=== PATIENT | male | born 1950 | race American Indian/Alaskan Native ===

== ENCOUNTER 2019-03-14 14:34 | Outpatient (CLI) | payer OTHER | END 2019-03-14 14:35 | disposition critical access hospital (66) | LOC: EMS 14:34 | PROVIDERS: ATTEND Surgery | DX: S01.81XA Laceration without foreign body of other part of head, initial encounter (principal); M25.511 Pain in right shoulder; R53.83 Other fatigue; W01.0XXA Fall on same level from slipping, tripping and stumbling without subsequent striking against object, initial encounter; Y93.01 Activity, walking, marching and hiking; Y92.009 Unspecified place in unspecified non-institutional (private) residence as the place of occurrence of the external cause | CPT/HCPCS: A0425; A0429 ==

== ENCOUNTER 2019-03-14 14:47 | Emergency (ER) | payer OTHER ==
[2019-03-14] MEDS ORDERED: HYDROcod/ACETAM 5/325 MG TABLET PO STA (14:54)
[2019-03-14] MEDS ORDERED: TETANUS/DIPHTHERIA/PERTUSSIS 0.5 ML SYRINGE IM ONE (14:54)
[2019-03-14] MEDS ORDERED: LIDOCAINE-EPINEPH-TETRACAINE 3 ML SYRINGE TOP STA (14:58)
--- NOTE | 2019-03-14 14:58 | ED Physician Documentation ---
PD HPI HEAD INJURY - Stated complaint Stated Complaint: GLF - History obtained from History obtained from: Patient, EMS - History of Present Illness Mechanism of head injury: Fell (He tripped and fell forward hitting his forehead on the ground. He has a wound there. He is amnestic to what happened after but is oriented now. He also complains of right shoulder pain. Both of his knees hurt to, but he says that is not from the injury, he is having a pseudogout attack. He vacillates as to whether or not he is up-to-date on tetanus. He is visiting from [place]. Denies drug or alcohol use today.) Review of Systems Ten Systems: 10 systems reviewed and negative Constitutional: denies: Fever, Chills Nose: denies: Rhinorrhea / runny nose, Congestion Cardiac: denies: Chest pain / pressure, Palpitations Respiratory: denies: Dyspnea, Cough PD PAST MEDICAL HISTORY - Past Medical History Past Medical History: Yes Musculoskeletal: Other (pseudogout) - Present Medications Home Medications: Ambulatory Orders Medication Instructions Recorded Confirmed Hydrocodone/Acetaminophen 1 - 2 each PO Q6H PRN #10 tablet 03/14/19 [Hydrocodon-Acetaminophen 5-325] - Allergies Allergies/Adverse Reactions: Allergies Allergy/AdvReac Type Severity Reaction Status Date / Time No Known Drug Allergies Allergy Verified 03/14/19 15:11 - Social History Does the pt smoke?: No Does the pt drink ETOH?: No - Family History Family history: reports: Non contributory PD ED PE NORMAL - Vitals Vital signs reviewed: Yes - General General: Alert and oriented X 3, Other (Slightly slow to answer questions but alert and oriented) - HEENT HEENT: PERRL, EOMI, Other (There is a 2 cm V-shaped shallow skin tear to the left forehead) - Neck Neck: Supple, no meningeal sign, No bony TTP - Cardiac Cardiac: RRR, No murmur - Respiratory Respiratory: No respiratory distress, Clear bilaterally - Abdomen Abdomen: Normal bowel sounds, Soft, Non tender - Back Back: No CVA TTP, No spinal TTP - Extremities Extremities: Other (Tender to the lateral right shoulder with diminished but not absent range of motion, the rest of his extremities are palpated and nontender.) - Neuro Neuro: Alert and oriented X 3, Normal speech Eye Opening: To Voice Motor: Obeys Commands Verbal: Oriented GCS Score: 14 - Psych Psych: Normal mood, Normal affect Results - Vitals Vitals: Vital Signs - 24 hr 03/14/19 14:47 Temperature 36.6 C Heart Rate 78 Respiratory 18 Rate Blood Pressure 139/77 H O2 Saturation 99 Oxygen O2 Source Room air - Rads (name of study) XR R shoulder Radiology: EMP read contemporaneously (NAD) CT Head Radiology: EMP read contemporaneously (NAD) CT C Spine Radiology: EMP read contemporaneously (multilevel DDD, no frx) Procedures - Laceration (location) L forehead Length in cm: 2 Wound type: Irregular, Flap, Contaminated (a lot of grit, debrided sharply), Other (Required extensive debridement, there was also some tissue loss, really more of a rough gouge than a laceration.) Anesthesia: LET, Lidocaine 1% with epi Wound Preparation: Irrigated copiously NS, Debrided extensively Skin layer closure: Prolene, Interrupted, Size #-0 - enter number (6-0), Sutures - enter # (6) Other: Patient tolerated well, No complications, Neurovascular intact, Tetanus booster given Complexity: Intermediate Departure - Departure Disposition: 01 Home, Self Care Clinical Impression: Concussion Qualifiers: Encounter type: initial encounter Loss of consciousness presence/duration: with LOC of 30 min or less Qualified Code(s): S06.0X1A - Concussion with loss of consciousness of 30 minutes or less, initial encounter Injury of head and neck Qualifiers: Encounter type: initial encounter Qualified Code(s): S09.90XA - Unspecified injury of head, initial encounter Contusion of right shoulder Qualifiers: Encounter type: initial encounter Qualified Code(s): S40.011A - Contusion of right shoulder, initial encounter Facial laceration Qualifiers: Encounter type: initial encounter Qualified Code(s): S01.81XA - Laceration without foreign body of other part of head, initial encounter Condition: Good Record reviewed to determine appropriate education?: Yes Instructions: ED Head Injury Closed, ED Laceration Facial Sutr Tape Prescriptions: Hydrocodone/Acetaminophen [Hydrocodon-Acetaminophen 5-325] 1 - 2 each PO Q6H PRN #10 tablet PRN Reason: pain Comments: Call your doctor to arrange a follow-up appointment, make the next available appointment. In the interim, return anytime if worse or if new symptoms develop. Come back for any signs of infection which would include: Redness, swelling, drainage, increased pain, or fevers. You can wash it soap and water. Keep it covered and moist with bacitracin ointment which is available over the counter; avoid neosporin. Follow-up with your physician in 7 days for suture removal.
--- NOTE | 2019-03-14 16:01 | CT Report ---
Reason: head / shoulder inj Procedure Date: 03/14/2019 Accession Number: [id number] / [id number] Procedure: CT - HEAD WO CPT Code: FULL RESULT: EXAM: CT HEAD EXAM DATE: 03/14/2019 03:30 PM. CLINICAL HISTORY: 68-year-old male with fall Head / shoulder inj. COMPARISON: None. TECHNIQUE: Multiaxial CT images were obtained from the foramen magnum to the vertex. Reformats: Sagittal and coronal. IV contrast: None. In accordance with CT protocol optimization, one or more of the following dose reduction techniques were utilized for this exam: automated exposure control, adjustment of mA and/or KV based on patient size, or use of iterative reconstructive technique. FINDINGS: Parenchyma: No intraparenchymal hemorrhage. No evidence of mass, midline shift, or CT findings of infarction. Hansen-white differentiation is distinct. Scattered periventricular white matter hypodensities, nonspecific, favored to represent sequela of chronic microangiopathy. Extraaxial Spaces: Normal for age. No subdural or epidural collections identified. Ventricles: Normal in size and position. Sinuses and Orbits: Imaged paranasal sinuses, orbits, and mastoids show no significant abnormality. Bones: No evidence of fracture or calvarial defect. Other: None. IMPRESSION: No CT evidence of acute intracranial abnormality, specifically no CT evidence of acute infarct, intracranial hemorrhage, mass effect, midline shift, or hydrocephalus. RAD[facility]
--- NOTE | 2019-03-14 16:02 | XRAY Report ---
Reason: head / shoulder inj Procedure Date: 03/14/2019 Accession Number: [id number] / [id number] Procedure: XR - Shoulder 3 View RT CPT Code: FULL RESULT: EXAM: RIGHT SHOULDER RADIOGRAPHY EXAM DATE: 03/14/2019 03:32 PM. CLINICAL HISTORY: Head/shoulder injury. Pain. COMPARISON: None. TECHNIQUE: 3 views. FINDINGS: Bones: Normal. No fracture or bone lesion. Joints: Mild degenerative hypertrophy of the lateral clavicle. Otherwise the glenohumeral and acromioclavicular joints are normal. Soft tissues: The visualized hemithorax is unremarkable. Soft tissue calcification at the tip of the coracoid process suggests enthesopathy or prior injury. IMPRESSION: No acute bony abnormality or dislocation. RADIA
--- NOTE | 2019-03-14 16:10 | CT Report ---
Reason: head / shoulder inj Procedure Date: 03/14/2019 Accession Number: [id number] / [id number] Procedure: CT - CERVICAL SPINE WO CPT Code: FULL RESULT: EXAM: CT CERVICAL SPINE WITHOUT CONTRAST DATE: 03/14/2019 03:30 PM. HISTORY: 68-year-old male. Head / shoulder inj. COMPARISONS: None. TECHNIQUE: Thin-section axial images were acquired of the cervical spine without contrast. Post-processing: Coronal and sagittal reformats. Other: None. In accordance with CT protocol optimization, one or more of the following dose reduction techniques were utilized for this exam: automated exposure control, adjustment of mA and/or KV based on patient size, or use of iterative reconstructive technique. FINDINGS: Alignment: No scoliosis or spondylolisthesis. Bones: No fracture or bone lesion. Interspace Levels/Facets: C1-C2: Unremarkable. C2-C3: Moderate left facet arthropathy. Small posterior disk bulge. No significant central canal or foraminal narrowing. C3-C4: Moderate to severe left facet arthropathy. Mild left foraminal narrowing. No right foraminal narrowing. No central canal narrowing. C4-C5: Moderate to severe disk height loss. Small posterior disk osteophyte complex. Moderate bilateral uncovertebral spurring. Mild bilateral facet arthropathy. No significant central canal narrowing. Moderate bilateral foraminal narrowing C5-C6: Moderate disk height loss. Moderate diffuse disk bulge. Moderate to severe right facet arthropathy. Moderate to severe right uncovertebral spurring. Mild central canal narrowing. Moderate to severe right foraminal narrowing. No left foraminal narrowing. C6-C7: Moderate disk height loss. Small posterior disk osteophyte complex. Severe bilateral uncovertebral spurring. Mild bilateral facet arthropathy. Mild central canal narrowing. Moderate to severe bilateral foraminal narrowing. C7-T1: Unremarkable. Musculature: Normal. No fatty atrophy. Other: Overall very poor dentition noted. Moderate atherosclerosis intracranial arteries. The paravertebral and prevertebral soft tissues are otherwise unremarkable. The lung apices are clear. IMPRESSION: 1. No evidence of acute fracture or malalignment. No prevertebral soft tissue swelling. 2. Moderate multilevel degenerative spondylosis, as detailed above. RADIA
[2019-03-14] MEDS ORDERED: BACITRACIN OINT TOP ONE (16:16)
[2019-03-14 16:22] VITALS: BP 131/90
== END 2019-03-14 16:22 | disposition home or self-care (01) ==
LOC: ED 14:47
DX: S06.0X1A Concussion with loss of consciousness of 30 minutes or less, initial encounter (principal); S01.82XA Laceration with foreign body of other part of head, initial encounter; S40.011A Contusion of right shoulder, initial encounter; W01.0XXA Fall on same level from slipping, tripping and stumbling without subsequent striking against object, initial encounter; M47.812 Spondylosis without myelopathy or radiculopathy, cervical region; Z23 Encounter for immunization
CPT/HCPCS: 12051; 70450; 72125; 73030; 90471; 90715; 99283; A9270

== ENCOUNTER 2020-01-11 09:58 | Emergency (ER) | payer OTHER ==
--- NOTE | 2020-01-11 10:14 | ED Physician Documentation ---
PD HPI URI - Stated complaint Stated Complaint: FLU SYMPTOMS - Chief complaint Chief Complaint: Fever - History obtained from History obtained from: Patient - History of Present Illness Timing - onset: How many days ago (several) Timing duration: Days Timing details: Gradual onset, Still present Associated symptoms: Productive cough, Dyspnea, NVD (some diarrhea). No: Fever, Sore throat, Chest pain Contributing factors: Travel (Had traveled in from [place] to here few weeks ago and was actually staying here and living in his car. He does plan to return to [place] in a couple of weeks where his family lives.), COPD / asthma. No: Sick contact, Immunocompromised Improves by: Rest Worsened by: Activity Similar symptoms before: Diagnosis (bronchitis and asthma in the past.) Recently seen: Not recently seen Review of Systems Constitutional: reports: Myalgias, Fatigue. denies: Fever, Chills Nose: reports: Congestion. denies: Rhinorrhea / runny nose Throat: denies: Sore throat Cardiac: denies: Chest pain / pressure, Palpitations, Pedal edema, Calf pain Respiratory: reports: Cough, Wheezing GI: reports: Nausea. denies: Abdominal Pain, Vomiting, Diarrhea Skin: denies: Rash Neurologic: denies: Confused, Headache PD PAST MEDICAL HISTORY - Past Medical History Cardiovascular: Hypertension Respiratory: Pneumonia Musculoskeletal: Other (pseudogout) - Past Surgical History Past Surgical History: No - Present Medications Home Medications: Ambulatory Orders Medication Instructions Recorded Confirmed Hydrocodone/Acetaminophen 1 - 2 each PO Q6H PRN #10 tablet 03/14/19 [Hydrocodon-Acetaminophen 5-325] Albuterol Sulfate [Albuterol 2 puffs IH QID #1 hfa.aer.ad 01/11/20 Sulfate Hfa] Benzonatate [Tessalon Perle] 100 - 200 mg PO TID PRN #30 capsule 01/11/20 Doxycycline Monohydrate 100 mg PO BID #14 tablet 01/11/20 dexAMETHasone [Decadron] 4 mg PO DAILY #7 tablet 01/11/20 guaiFENesin/CODEINE [Robitussin AC] 10 ml PO Q6H PRN #240 ml 01/11/20 - Allergies Allergies/Adverse Reactions: Allergies Allergy/AdvReac Type Severity Reaction Status Date / Time No Known Drug Allergies Allergy Verified 01/11/20 10:10 - Social History Does the pt smoke?: No Smoking Status: Never smoker Does the pt drink ETOH?: No Does the pt have substance abuse?: No - Immunizations Immunizations: TDAP >10years/unknown PD ED PE NORMAL - Vitals Vital signs reviewed: Yes - General General: Alert and oriented X 3, No acute distress, Well developed/nourished - HEENT HEENT: Ears normal, Pharynx benign - Neck Neck: Supple, no meningeal sign, No adenopathy - Cardiac Cardiac: RRR, No murmur - Respiratory Respiratory: No: Clear bilaterally (Wheezing diffusely without any accessory muscle use. There is no prolonged expirations. No coarse sounds.) - Abdomen Abdomen: Soft, Non tender - Derm Derm: Normal color, Warm and dry - Extremities Extremities: Normal ROM s pain, No edema, No calf tenderness / cord - Neuro Neuro: Alert and oriented X 3, No motor deficit, Normal speech Results - Vitals Vitals: Vital Signs - 24 hr 01/11/20 01/11/20 10:05 12:04 Temperature 37.2 C 37.0 C Heart Rate 72 54 L Respiratory 17 16 Rate Blood Pressure 166/94 H 182/91 H O2 Saturation 99 96 Oxygen O2 Source Room air - Rads (name of study) chest xray Radiology: Prelim report reviewed (Findings consistent with COPD. No focal infiltrates.), See rad report PD MEDICAL DECISION MAKING - ED course Complexity details: reviewed results (Chest x-ray is clear without infiltrates), re-evaluated patient, considered differential (The patient states he is returning to [place] in a couple of weeks at in the month and wants to make sure he is not going to bring back the coronavirus with him and therefore is requesting testing. I told him any testing right now would not impact his care and certainly would not preclude him getting the virus in the meantime so the refore we had a shared decision of not doing any testing. He is however having cough wheezing and feverish so got a chest x-ray to evaluate for pneumonia.), d/w patient Departure - Departure Disposition: 01 Home, Self Care Clinical Impression: Bronchitis, acute Qualifiers: Bronchitis organism: unspecified organism Qualified Code(s): J20.9 - Acute bronchitis, unspecified Condition: Stable Record reviewed to determine appropriate education?: Yes Instructions: ED Upper Resp Infec Abx Tx Prescriptions: Albuterol Sulfate [Albuterol Sulfate Hfa] 2 puffs IH QID #1 hfa.aer.ad Benzonatate [Tessalon Perle] 100 - 200 mg PO TID PRN #30 capsule PRN Reason: Cough dexAMETHasone [Decadron] 4 mg PO DAILY #7 tablet Doxycycline Monohydrate 100 mg PO BID #14 tablet guaiFENesin/CODEINE [Robitussin AC] 10 ml PO Q6H PRN #240 ml PRN Reason: Cough Comments: This may be a viral illness such as flu or other viral infections. Your chest x -ray does not show any signs of pneumonia. Your lungs sound pretty good with just a little bit of wheeziness. I be concerned for some bacterial cause given your cough. Stay well-hydrated. Use doxycycline antibiotic twice daily for a week. Decadron steroid for inflammation of the airways daily for a week. Use albuterol inhaler 2 puffs 4 times a day for the next 7 to 10 days and extra times if needed for cough and wheezing. Tylenol ibuprofen as needed for fevers or pains. Benzonatate as needed for cough suppression. You can add cough medicine if needed as well. I would assume you will be improving over the next few days. Recheck if not better over the that timeframe and return sooner if worsening. Do good handwashing and avoid close personal contact with others while you are ill. Discharge Date/Time: 01/11/20 12:04
[2020-01-11] MEDS ORDERED: CHERRY SYRUP 10 ML UDC PO ONE (11:04)
[2020-01-11] MEDS ORDERED: DOXYCYCLINE 100 MG TABLET PO STA (11:04)
[2020-01-11] MEDS ORDERED: DEXAMETHASONE 10 MG/ML VIAL PO STA (11:04)
[2020-01-11] MEDS ORDERED: BENZONATATE 100 MG CAPSULE PO STA (11:04)
--- NOTE | 2020-01-11 12:02 | XRAY Report ---
Reason: dyspnea/ cough Procedure Date: 01/11/2020 Accession Number: [id number] / [id number] Procedure: XR - Chest 2 View X-Ray CPT Code: 72734 Final Report FULL RESULT: EXAM: CHEST RADIOGRAPHY EXAM DATE: 01/11/2020 11:29 AM. CLINICAL HISTORY: Dyspnea/ cough. COMPARISON: None. TECHNIQUE: 2 views. FINDINGS: Lungs/Pleura: No focal opacities evident. No pleural effusion. No pneumothorax. Lungs are hyperinflated with flattening of the diaphragm. Mediastinum: Heart and mediastinal contours are unremarkable. Other: No acute osseous abnormality. There are mild degenerative disk changes of the thoracic spine. There are moderate degenerative changes of the bilateral acromioclavicular joints. IMPRESSION: 1. Lungs are hyperinflated with flattening of the diaphragm, suggestive of COPD/emphysema. 2. No focal pulmonary consolidation or other acute abnormality. RADIA
[2020-01-11 12:53] VITALS: BP 182/91
== END 2020-01-11 12:04 | disposition home or self-care (01) ==
LOC: ED 09:58
DX: J20.9 Acute bronchitis, unspecified (principal); I10 Essential (primary) hypertension
CPT/HCPCS: 71046; 99284; A9270